=== PATIENT | female | born 1980 | race Two or more races ===

== ENCOUNTER 2016-12-27 10:02 | Emergency (ER) | payer OTHER ==
[2016-12-27 10:10] VITALS: BP 108/83; PULSE 82; TEMP 98; BMI 27.4
--- NOTE | 2016-12-27 10:39 | PDOC ---
History of Present Illness - General Chief Complaint: Pain, Acute Stated Complaint: BREASTS INFECTION Time Seen by Provider: 12/27/16 10:29 - History of Present Illness Initial Comments: 12/27/16 11:22 Pt. is a 36 y/o female PMH of hypothyroidism, , who presents to the ED today with 3 days of nipple pain. Pt. states that she is breast feeding her 8 month old child and that she noticed "cuts" on her nipples. She states that the nipple is painful to the touch and the area is more painful with feeding. She is expressing milk normally. Denies fevers, chills, N/V, bloody discharge from the nipple, or breast masses. Past History - Past Medical History Allergies/Adverse Reactions: Allergies Allergy/AdvReac Type Severity Reaction Status Date / Time No Known Allergies Allergy Verified 12/27/16 10:11 Home Medications: Ambulatory Orders Levothyroxine [Synthroid -] 137 mcg PO DAILY 04/22/16 Vit/Iron Fumarate/FA [ Tablet] 1 each PO DAILY 04/22/16 Vit D3/Folic Acid/B2/B6/B12 [Folgard Tablet] 2,000 mg PO DAILY 04/22/16 Ibuprofen [Motrin -] 600 mg PO QID #60 tablet 04/28/16 Anemia: Yes Asthma: No Cancer: No Cardiac Disorders: No Diabetes: No HTN: No Psychiatric Problems: Yes Seizures: No Thyroid Disease: No Other medical history: PATIENT DENIES MEDICAL HISTORY - Psycho/Social/Smoking Cessation Hx Anxiety: No Suicidal Ideation: No Smoking Status: Yes Smoking History: Never smoked Have you smoked in the past 12 months: No Number of Cigarettes Smoked Daily: 0 Hx Alcohol Use: No Drug/Substance Use Hx: No Substance Use Type: None Hx Substance Use Treatment: No *Physical Exam - Vital Signs Last Vital Signs Temp Pulse Resp BP Pulse Ox 98.0 F 82 18 108/83 95 12/27/16 10:07 12/27/16 10:07 12/27/16 10:07 12/27/16 10:07 12/27/16 10:07 - Physical Exam Comments: 12/27/16 11:25 GENERAL: Well developed, well nourished. Awake and alert. No acute distress. VVS NECK: Supple. Full ROM. Carotid pulses 2+ and symmetric. No thyromegaly. No lymphadenopathy. BREAST: Nipples TTP. No obvious masses in the breast B/L, no LAD into the axilla, no redness or induration. No fluctuant masses. SKIN: Dry skin surrounding nipples B/L. Fissures on the L breast at the 1-3 o'clock position and the R breast at the 6 o'clock position. Normal capillary refill. No rashes. No jaundice. Medical Decision Making - Medical Decision Making 12/27/16 11:29 Pt. is a 36 y/o female who presents to the ED with nipple pain. VVS. No obvious cellulitis or abscess. Fissures noted as described in physical exam. Will discharge home with Lanlolin cream and breast feeding instructions to avoid further irritation to the area. *DC/Admit/Observation/Transfer Diagnosis at time of Disposition: Fissure of female nipple - Discharge Dispostion Admit: No - Referrals Referrals: Herminio Chatman MD [Primary Care Provider] - - Patient Instructions Additional Instructions: You have a cut on your nipple known as a fissure. These are caused by dry skin. There is no sign of infection today. After you finish breast feeding, dry your breast thoroughly. Use Lanolin cream on your nipples after breast feeding. This cream is found over the counter at your local pharmacy. Rotate breast feeding positions to give the affected area of your nipple a rest. You may also find comfort from using a gel padded bra. These can be found at [facility]. If you cannot find a gel padded bra, put a cabbage leaf in your bra to help prevent rubbing. If you do not see improvement, follow up with your PCP.
== END 2016-12-27 11:45 | disposition home or self-care (01) ==
LOC: JERFT 10:02
DX: N64.0 Fissure and fistula of nipple (principal); F99 Mental disorder, not otherwise specified; D64.9 Anemia, unspecified
CPT/HCPCS: 99281-25

== ENCOUNTER 2018-11-05 08:00 | Inpatient (IN) | payer OTHER ==
[2018-11-05] MEDS: DEXTROSE 5%-LACTATED RINGERS 1,000 ML IV SCH (08:40)
[2018-11-05] MEDS ORDERED: AMPICILLIN SODIUM 2 GM VIAL ONE (08:49)
[2018-11-05 09:25] VITALS: BMI 30.9
[2018-11-05] MEDS ORDERED: PROMETHAZINE HCL 25 MG/1 ML VIAL ONE (09:48)
[2018-11-05] MEDS ORDERED: BUTORPHANOL TARTRATE 1 MG/ML VIAL ONE (09:48)
[2018-11-05] MEDS ORDERED: PROMETHAZINE HCL 25 MG/1 ML VIAL IVPUSH ONE (10:03)
[2018-11-05] MEDS ORDERED: BUTORPHANOL TARTRATE 1 MG/ML VIAL IVPB ONE (10:03)
[2018-11-05] MEDS ORDERED: AMPICILLIN - 2 GM in SODIUM CHLORIDE 100 ML IVPB ONE (10:06)
[2018-11-05 10:09] LABS: BASO % 0.3 % (0-2.0); EOS % 0.4 % (0-4.5); HEMATOCRIT 31.7 % (32.4-45.2); HEMOGLOBIN 10.9 GM/dL (10.7-15.3); LYMPH % 19.6 % (8-40); MCHC 34.4 g/dl (32.0-36.0); MEAN CELL VOLUME 84.2 fl (80-96); MEAN PLT VOLUME 8.5 fl (7.5-11.1); MONO % 3.9 % (3.8-10.2); NEUT % 75.8 % (42.8-82.8); PLATELET COUNT 222 K/MM3 (134-434); RBC 3.76 M/mm3 (3.60-5.2); RDW 15.1 % (11.6-15.6); WHITE BLOOD COUNT 7.4 K/mm3 (4.0-10.0)
--- NOTE | 2018-11-05 10:13 | HP ---
Past Medical History - Admission Chief Complaint: Pain in labor History of Present Illness: 38 yo @ 39.6 weeks gestation, admitted for labor pain. Upon admission she was 7cm dilated with intact membrane. History Source: Patient Limitations to Obtaining History: No Limitations - Past Medical History ...: 3 ...Para: 1 ...Term: 1 ...: 0 ...Spon : 0 ...Induced : 0 ...Multiple Gestation: 0 ...LMP: 03/19/18 ...EDC by Dates: 11/06/18 Heme/Onc: Yes: Anemia Psych: Yes: Schizophrenia (unclear hx) Endocrine: Yes: Hypothyroidism - Past Surgical History Past Surgical History: Yes: None Hx Myomectomy: No Hx Transabdominal Cerclage: No - Smoking History Smoking history: Never smoked Have you smoked in the past 12 months: No Aproximately how many cigarettes per day: 0 - Alcohol/Substance Use Hx Alcohol Use: No History of Substance Use: reports: None - Social History Usual Living Arrangement: Yes: With Spouse ADL: Independent History of Recent Travel: No Home Medications - Allergies Allergies/Adverse Reactions: Allergies Allergy/AdvReac Type Severity Reaction Status Date / Time No Known Allergies Allergy Verified 11/05/18 09:41 - Home Medications Home Medications: Ambulatory Orders Levothyroxine [Synthroid -] 137 mcg PO DAILY 04/22/16 Vit/Iron Fum/Folic AC [ Tablet] 1 each PO DAILY 04/22/16 Vit D3/Folic Acid/B2/B6/B12 [Folgard Tablet] 2,000 mg PO DAILY 04/22/16 Ibuprofen [Motrin -] 600 mg PO QID #60 tablet 04/28/16 Family Disease History - Family Disease History Family History: Unremarkable Review of Systems - Review of Systems Constitutional: reports: No Symptoms Eyes: reports: No Symptoms HENT: reports: No Symptoms Neck: reports: No Symptoms Cardiovascular: reports: No Symptoms Respiratory: reports: No Symptoms Gastrointestinal: reports: No Symptoms Genitourinary: reports: Pain Breasts: reports: No Symptoms Reported Musculoskeletal: reports: No Symptoms Integumentary: reports: No Symptoms Neurological: reports: No Symptoms Endocrine: reports: No Symptoms Hematology/Lymphatic: reports: No Symptoms Psychiatric: reports: No Symptoms Pain Intensity: 7 Physical Exam - Maternity Vital Signs: Vital Signs Temperature 97.6 F 11/05/18 09:00 Pulse Rate 72 11/05/18 09:00 Respiratory Rate 20 11/05/18 09:00 Blood Pressure 121/76 11/05/18 09:00 O2 Sat by Pulse Oximetry (%) Constitutional: Yes: Well Nourished Eyes: Yes: Conjunctiva Clear HENT: Yes: Atraumatic Neck: Yes: Supple Cardiovascular: Yes: Regular Rate and Rhythm Lungs: Clear to auscultation - Abdominal Exam/OB Number of Fetuses: Single Presentation: Vertex Intensity: Mod/Strong - Vaginal Exam/OB Vaginal Bleediing: No Dilatation (cm): 7 Effacement (%): 90 Station: -1 - Physical Exam Musculoskeletal: Yes: WNL Extremities: Yes: WNL ...Motor Strength: WNL Psychiatric: Yes: Alert, Oriented Assessment/Plan Active labor Analgesia as needed Anticipate
[2018-11-05 10:21] LABS: INR 0.83 (0.83-1.09); PROTHROMBIN TIME (PATIENT) 9.8 SEC (9.7-13.0)
[2018-11-05 10:23] LABS: ACTIVATED PTT 25.9 SECONDS (25.2-36.5)
[2018-11-05 10:30] LABS: ANION GAP 10 MMOL/L (8-16); BLOOD UREA NITROGEN 12 mg/dL (7-18); CALCIUM 8.7 mg/dL (8.5-10.1); CHLORIDE 106 mmol/L (98-107); CO2 22 mmol/L (21-32); CREATININE 0.7 mg/dL (0.55-1.3); GLUCOSE,RANDOM 94 mg/dL (74-106); POTASSIUM 3.8 mmol/L (3.5-5.1); SODIUM 138 mmol/L (136-145)
[2018-11-05] MEDS: OXYTOCIN 30 UNITS in 0.9% NS 30 UNIT/500 ML INFUS.BAG IVPB SCH (10:30)
[2018-11-05] MEDS: OXYTOCIN 20 UNITS in 0.9% NS 20 UNIT/1,000 ML INFUS.BAG IV SCH (11:30)
[2018-11-05] MEDS ORDERED: LIDOCAINE HCL 1% PRESERVATIVE FREE - 30ML VIAL ONE (11:34)
[2018-11-05] MEDS ORDERED: BENZOCAINE 28 GM HEMORRHOIDAL OINTMENT TP PRN (11:46)
[2018-11-05] MEDS ORDERED: BENZOCAINE 20% 57 GM BOTTLE TP PRN (11:46)
[2018-11-05] MEDS ORDERED: BISACODYL 10 MG SUPP.RECT RC PRN (11:46)
[2018-11-05] MEDS ORDERED: WITCH HAZEL 50% (TUCKS) 40 PAD/JAR PAD TP PRN (11:46)
[2018-11-05] MEDS ORDERED: METHYLERGONOVINE MALEATE 0.2 MG/1 ML AMP IM PRN (11:46)
--- NOTE | 2018-11-05 11:54 | PN ---
Delivery - Delivery Vaginal Delivery: Spontaneous Type of Anesthesia: Local Episiotomy/Laceration: 2nd degree EBL (cc): 250 Delivery, Single - Stages of Labor Date 1st Stage Initiatied: 11/05/18 Time 1st Stage Initiated: 08:00 Date 2nd Stage Initiated: 11/05/18 Date of Delivery: 11/05/18 - Feeding Plan Initial Plan: Elected not to breastfeed exclusively throughout hospitalization Remarks - Remarks Remarks: Normal spontaneous vaginal delivery of a live infant over second degree laceration. Nose / Oropharynx suctioned @ perineum. Nuchal cord x 1 clamped and cut. Baby handed to nurse Placenta expelled spontaneously intact. Laceration repaired with 2.0 Chromic.
[2018-11-05] MEDS ORDERED: OXYTOCIN 20 UNITS in 0.9% NS 20 UNIT/1,000 ML INFUS.BAG IV ONE (13:07)
[2018-11-05] MEDS ORDERED: TUBERCULIN PPD 5 TU/0.1ML SYRINGE (IN PATIENT USE ONLY) ID ONE (13:15)
[2018-11-05] MEDS: IBUPROFEN 600 MG TABLET (FP) PO PRN (17:10)
[2018-11-05] MEDS: ACETAMINOPHEN 325 MG TABLET (FP) PO PRN (17:11)
[2018-11-06 08:04] LABS: BASO % 0.4 % (0-2.0); EOS % 0.6 % (0-4.5); HEMATOCRIT 30.6 % (32.4-45.2); HEMOGLOBIN 10.3 GM/dL (10.7-15.3); LYMPH % 16.9 % (8-40); MCH 28.2 pg (25.7-33.7); MCHC 33.6 g/dl (32.0-36.0); MEAN CELL VOLUME 84.1 fl (80-96); MEAN PLT VOLUME 8.5 fl (7.5-11.1); MONO % 3.3 % (3.8-10.2); NEUT % 78.8 % (42.8-82.8); PLATELET COUNT 240 K/MM3 (134-434); RBC 3.64 M/mm3 (3.60-5.2); RDW 15.3 % (11.6-15.6); WHITE BLOOD COUNT 11.7 K/mm3 (4.0-10.0)
[2018-11-06] MEDS: IBUPROFEN 600 MG TABLET (FP) PO PRN (08:21)
[2018-11-06] MEDS: ACETAMINOPHEN 325 MG TABLET (FP) PO PRN (08:23)
[2018-11-06] MEDS: PRENATAL VITAMINS W/ FOLIC ACID TABLET (FP) PO SCH (09:23)
--- NOTE | 2018-11-06 10:13 | PN ---
Post Progress Note - Subjective Subjective: 38 yo Para 3, status post vaginal delivery, seen and evaluated. Doing well. She c/o perineal pain. She's taking her home medication for thyroid disease. Post Day: 1 Type of Delivery: Vital Signs: Vital Signs Temperature 98.1 F 11/06/18 07:30 Pulse Rate 90 11/06/18 07:30 Respiratory Rate 18 11/06/18 07:30 Blood Pressure 116/75 11/06/18 07:30 O2 Sat by Pulse Oximetry (%) 100 11/05/18 12:30 Breast Exam: Yes: Soft Uterus: Yes: Fundus Firm Abdomen/GI: Yes: Abdomen soft, Tolerating PO Lochia: Yes: Rubra Lochia, amount: Moderate Extremities: Yes: Calves non-tender Perineum: Yes: Laceration (Healing) Activity: Ambulating - Labs Labs: CBC WBC 11.7 K/mm3 (4.0-10.0) H 11/06/18 07:30 RBC 3.64 M/mm3 (3.60-5.2) 11/06/18 07:30 Hgb 10.3 GM/dL (10.7-15.3) L 11/06/18 07:30 Hct 30.6 % (32.4-45.2) L 11/06/18 07:30 MCV 84.1 fl (80-96) 11/06/18 07:30 MCH 28.2 pg (25.7-33.7) 11/06/18 07:30 MCHC 33.6 g/dl (32.0-36.0) 11/06/18 07:30 RDW 15.3 % (11.6-15.6) 11/06/18 07:30 Plt Count 240 K/MM3 (134-434) 11/06/18 07:30 MPV 8.5 fl (7.5-11.1) 11/06/18 07:30 Absolute Neuts (auto) 9.2 K/mm3 (1.5-8.0) H 11/06/18 07:30 Neutrophils % 78.8 % (42.8-82.8) 11/06/18 07:30 Lymphocytes % 16.9 % (8-40) 11/06/18 07:30 Monocytes % 3.3 % (3.8-10.2) L 11/06/18 07:30 Eosinophils % 0.6 % (0-4.5) 11/06/18 07:30 Basophils % 0.4 % (0-2.0) 11/06/18 07:30 Nucleated RBC % 0 % (0-0) 11/06/18 07:30 Problem List - Problems (1) Status post normal vaginal delivery Code(s): [id number] - Assessment/Plan Status post vaginal delivery Stable Continue routine post op care
[2018-11-06] MEDS: DEXTROSE 5%-LACTATED RINGERS 1,000 ML IV SCH (20:27)
[2018-11-06] MEDS: OXYTOCIN 30 UNITS in 0.9% NS 30 UNIT/500 ML INFUS.BAG IVPB SCH (20:28)
[2018-11-06] MEDS: OXYTOCIN 20 UNITS in 0.9% NS 20 UNIT/1,000 ML INFUS.BAG IV SCH (20:28)
[2018-11-06] MEDS ORDERED: SENNOSIDES/DOCUSATE COMBO (SENNA PLUS) TABLET (UD) PO PRN (22:00)
--- NOTE | 2018-11-07 06:35 | DS ---
Physical Exam-DE[employer] MA[employer]GER Vital Signs: Vital Signs Temperature 97.1 F L 11/06/18 22:00 Pulse Rate 88 11/06/18 22:00 Respiratory Rate 18 11/06/18 22:00 Blood Pressure 107/67 11/06/18 22:00 O2 Sat by Pulse Oximetry (%) 100 11/05/18 12:30 Constitutional: Yes: Well Nourished, No Distress ....Post : Yes: Uterus firm, Uterus non-tender Breast(s): Yes: WNL Extremities: Yes: WNL Labs: CBC, BMP 11/06/18 07:30 11/05/18 09:42 Delivery - Delivery Vaginal Delivery: Spontaneous Type of Anesthesia: Local Episiotomy/Laceration: Perineal Extension/lac, 2nd degree EBL (cc): 250 Delivery, Single - Stages of Labor Date 1st Stage Initiatied: 11/05/18 Time 1st Stage Initiated: 08:00 Date 2nd Stage Initiated: 11/05/18 Time 2nd Stage Initiated: 11:10 Date of Delivery: 11/05/18 Time of Delivery: 11:24 Time Placenta Delivered: 11:30 - Condition of Infant [place] Curtain Machine Tender/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 Present: No Infant Gender: Female Weight: 7 lb 13 oz Position: Left, OP Total Hours ROM (Hrs/Mins): 1hr-10 mins - 1 Minute Total Score: 9 5 Minutes Total Score: 9 - Feeding Plan Initial Plan: Elected not to breastfeed exclusively throughout hospitalization Discharge Summary Reason For Visit: LABOR ADMISSION Current Active Problems Status post normal vaginal delivery (Acute) Procedures: Principal: Normal vaginal delivery Condition: Good - Instructions Diet, Activity, Other Instructions: Regular diet No douching, no sexual intercourse x 6 weeks F/U with MD in 6 weeks Disposition: HOME - Home Medications Comprehensive Discharge Medication List: Ambulatory Orders Levothyroxine [Synthroid -] 137 mcg PO DAILY 04/22/16 Vit/Iron Fum/Folic AC [ Tablet] 1 each PO DAILY 04/22/16 Vit D3/Folic Acid/B2/B6/B12 [Folgard Tablet] 2,000 mg PO DAILY 04/22/16 Ibuprofen [Motrin -] 600 mg PO QID #60 tablet 04/28/16
[2018-11-07] MEDS: PRENATAL VITAMINS W/ FOLIC ACID TABLET (FP) PO SCH (09:29)
[2018-11-07 13:17] VITALS: BP 125/69; PULSE 86; TEMP 99.1
== END 2018-11-07 16:00 | disposition home or self-care (01) | DRG 560 ==
LOC: JLDR 08:00 → J3W 13:14
PROVIDERS: ADMIT Obstetrics & Gynecology; ATTEND Obstetrics & Gynecology
PROC: 0KQM0ZZ Repair Perineum Muscle, Open Approach (ICD-10-PCS; principal; 2018-11-05)
PROC: 10E0XZZ Delivery of Products of Conception, External Approach (ICD-10-PCS; 2018-11-05)
DX: O69.81X0 Labor and delivery complicated by cord around neck, without compression, not applicable or unspecified (principal); O70.1 Second degree perineal laceration during delivery; Z3A.39 39 weeks gestation of pregnancy; Z37.0 Single live birth
CPT/HCPCS: 36415; 59409; 80048; 85025; 85610; 85730; 86593; 86850; 86900; 86901; 87389

== ENCOUNTER 2019-04-25 00:19 | Emergency (ER) | payer OTHER | END 2019-04-25 02:22 | disposition home or self-care (01) | LOC: FER 00:19 ==

== ENCOUNTER 2019-05-09 12:03 | Inpatient (IN) | payer OTHER ==
[2019-05-09] MEDS ORDERED: AZTREONAM 2 GM in DEXTROSE 5%-WATER 100 ML IVPB ONE (13:05)
--- NOTE | 2019-05-09 13:20 | PDOC ---
History of Present Illness - General Chief Complaint: Pain Stated Complaint: ABD. PAIN/ INFECTION Time Seen by Provider: 05/09/19 12:39 - History of Present Illness Initial Comments: 05/09/19 13:16 39F with delivered vaginally in October of this year presents with umbilical rash, swelling and pain since last night. The swelling has been present since but recently has been getting bigger. The pain and the rash started last night which prompted her to come to the emergency department. Took one Tylenol last night m no vaginal discharge, no constipation, no diarrhea. No fever, n/v. Menstruation started 3 days ago. Past History - Past Medical History Allergies/Adverse Reactions: Allergies Allergy/AdvReac Type Severity Reaction Status Date / Time No Known Allergies Allergy Verified 05/09/19 12:17 Home Medications: Ambulatory Orders Levothyroxine [Synthroid -] 137 mcg PO DAILY 04/22/16 Anemia: Yes Asthma: No Cancer: No Cardiac Disorders: No COPD: No Diabetes: No HTN: No Psychiatric Problems: Yes Seizures: No Thyroid Disease: Yes (Hypothyroid) Other medical history: GESTATIONAL DM - Suicide/Smoking/Psychosocial Hx Smoking Status: Yes Smoking History: Never smoked Have you smoked in the past 12 months: No Number of Cigarettes Smoked Daily: 0 Information on smoking cessation initiated: No Hx Alcohol Use: No Drug/Substance Use Hx: No Substance Use Type: None Hx Substance Use Treatment: No Review of Systems - Review of Systems Able to Perform ROS?: Yes Is the patient limited Belgian proficient: No Constitutional: No: Symptoms Reported HEENTM: No: Symptoms Reported Respiratory: No: Symptoms reported Cardiac (ROS): No: Symptoms Reported ABD/GI: Yes: See HPI : No: Symptoms Reported Integumentary: Yes: See HPI Neurological: No: Symptoms reported All Other Systems: Reviewed and Negative *Physical Exam - Vital Signs Last Vital Signs Temp Pulse Resp BP Pulse Ox 98.2 F 96 H 17 115/65 98 05/09/19 12:18 05/09/19 12:18 05/09/19 12:18 05/09/19 12:18 05/09/19 12:18 - Physical Exam General Appearance: Yes: Nourished, Appropriately Dressed. No: Apparent Distress HEENT: positive: EOMI, BALAJI, Normal ENT Inspection Respiratory/Chest: positive: Lungs Clear, Normal Breath Sounds. negative: Chest Tender, Respiratory Distress Cardiovascular: positive: Regular Rhythm, Regular Rate, S1, S2 Gastrointestinal/Abdominal: positive: Normal Bowel Sounds, Tender (umbilical tenderness and swelling with 10cm diameter erythmatous rash), Soft. negative: Flat ED Treatment Course - LABORATORY CBC & Chemistry Diagram: 05/09/19 14:21 05/09/19 14:21 Medical Decision Making - Medical Decision Making 05/09/19 13:27 abscess vs infected incarcerated umbilical hernia Bedside ultrasound ambiguous for either. 05/09/19 15:17 Will start antibiotics and obtain ct abdomen and pelvis with IV contrast. 05/09/19 17:12 A 4. 4 x 4.2 x 4 cm thick-walled subcutaneous umbilical region fluid collection is seen suggestive of abscess formation. Overlying skin thickening is seen. Immediately deep to this apparent abscess note is made of a 1.7 x 1.7 cm slightly thickwalled fluid structure which may represent abscess extension into the preperitoneal space versus representing a concomitant small umbilical hernia. No bowel obstruction is visualized. Consult placed to surgeon economics lecturer Dr. Blankenship. 05/09/19 19:05 Patient admitted to med surg *DC/Admit/Observation/Transfer Diagnosis at time of Disposition: Abscess, umbilical, Abdominal wall cellulitis - Discharge Dispostion Decision to Admit order: Yes - Referrals Referrals: Rios Brooke MD [Primary Care Provider] - - Patient Instructions - Post Discharge Activity
--- NOTE | 2019-05-09 14:08 | PDOC ---
Documentation entered by Ivett Keith SCRIBE, acting as scribe for Yumiko Martínez MD. Yumiko Martínez MD: This documentation has been prepared by the Inna lopez Xhesika, SCRIBE, under my direction and personally reviewed by me in its entirety. I confirm that the documentation accurately reflects all work, treatment, procedures, and medical decision making performed by me. Attending Attestation - Resident Resident Name: Nato Birmingham - ED Attending Attestation I have performed the following: I have examined & evaluated the patient, The case was reviewed & discussed with the resident, I agree w/resident's findings & plan, Exceptions are as noted - HPI HPI: 05/09/19 13:10 This is a 36 year old female with a significant PMH of anemia, Schizophrenia, and hypothyroidism who presents to the emergency department for periumbilical pain x 1 day. The patient states she gave 11/05/18 and ever since then she developed a periumbilical rash, however, last night the area felt erythematous and edematous, which prompted her arrival to the ED. The patient denies chest pain, shortness of breath, headache and dizziness. Denies fever, chills, cough, nausea, vomiting, diarrhea and constipation. Denies dysuria, frequency, urgency and hematuria. Allergies: NKDA PCP: Dr. Rios Brooke. 05/09/19 14:02 05/09/19 18:59 - Physicial Exam PE: 05/09/19 14:05 awake alert lungs bilat heart rrr no mrg abd soft, periumbilical region with large erythematous bulge 1 x 2 inches., no palp hernia border. nonreducable however, fluctuance and overlying erythema, warmth, induration surrounding. - Medical Decision Making 05/09/19 14:07 39 yo F w post umbilical pain swelling and erythema, bulge. differential cellulitis, abscess, hernia with overlying cellulitis. plan ct a/p evalute for fluid collection extent of infection and possible hernia. 05/09/19 18:58 pt with abscess, overlying hernia small space between peritoneal cavity surrounding abd wall cellulitis. d/w surgeon dr cortez. pt will require admission for iv antiobtiocs. given 1 l LR vancomycin, an zosyn. will need admission.
[2019-05-09 14:32] LABS: BASO % 0.6 % (0-2.0); HEMATOCRIT 34.1 % (32.4-45.2); HEMOGLOBIN 11.5 GM/dL (10.7-15.3); LYMPH % 25.6 % (8-40); MCH 28.5 pg (25.7-33.7); MCHC 33.6 g/dl (32.0-36.0); MEAN CELL VOLUME 84.9 fl (80-96); MEAN PLT VOLUME 7.6 fl (7.5-11.1); MONO % 6.5 % (3.8-10.2); NEUT % 64.3 % (42.8-82.8); PLATELET COUNT 261 K/MM3 (134-434); RBC 4.02 M/mm3 (3.60-5.2); WHITE BLOOD COUNT 7.1 K/mm3 (4.0-10.0)
[2019-05-09 14:59] LABS: BILIRUBIN,TOTAL 0.5 mg/dL (0.2-1); CALCIUM 8.6 mg/dL (8.5-10.1); CREATININE 0.7 mg/dL (0.55-1.3); POTASSIUM 3.8 mmol/L (3.5-5.1)
[2019-05-09] MEDS ORDERED: VANCOMYCIN 1 GM in D5W (PRE-DOCKED) 1,000 MG/250 ML IVPB ONE (18:40)
[2019-05-09] MEDS ORDERED: PIPERACILLIN/TAZOB 3.375 GM 3.375 GM in DEXTROSE 5%-WATER - 50 ML IVPB ONE (18:41)
[2019-05-09] MEDS ORDERED: LACTATED RINGERS SOLUTION 1000 ML INFUS.BAG IV ONE (18:49)
[2019-05-09] MEDS ORDERED: LACTATED RINGERS SOLUTION 1,000 ML/1,000 ML INFUS.BAG IV SCH (19:00)
[2019-05-09] MEDS ORDERED: PIPERACILLIN/TAZOB 3.375 GM 3.375 GM/50 ML BAG IVPB ONE (19:05)
[2019-05-09] MEDS ORDERED: VANCOMYCIN 1 GRAM (PRE-DOCKED) 1,000 MG/250 ML BAG IVPB ONE (19:48)
[2019-05-09] MEDS ORDERED: ACETAMINOPHEN 325 MG TABLET (FP) PO PRN (20:38)
[2019-05-09] MEDS ORDERED: LACTATED RINGERS SOLUTION 1,000 ML IV SCH (20:45)
[2019-05-09 21:05] LABS: URINE COLOR YELLOW
[2019-05-09 21:06] LABS: URINE APPEARANCE CLEAR; URINE BILIRUBIN NEGATIVE (NEGATIVE); URINE GLUCOSE (UA) NEGATIVE (NEGATIVE); URINE KETONE NEGATIVE (NEGATIVE)
[2019-05-09 21:07] LABS: URINE NITRITE NEGATIVE (NEGATIVE); URINE PROTEIN NEGATIVE (NEGATIVE); URINE UROBILINOGEN 0.2 mg/dL (0.2-1.0)
[2019-05-09 21:08] LABS: EPI CELLS 1 /HPF (0-5/HPF); URINE LEUK ESTERASE NEGATIVE (NEGATIVE); URINE RBC 4 /hpf (0-4); URINE WBC 1 /hpf (0-5)
--- NOTE | 2019-05-09 22:38 | HP ---
CHIEF COMPLAINT: abdominal pain PCP:Dr. Rios Brooke HISTORY OF PRESENT ILLNESS: 39 year old female with past medical history of hypothyroidism, anemia, ? schizophrenuia and delivered vaginally in October of this year who presents with an umbilical rash, swelling and abdominal pain since last night. CT scan of abdomen demonstrated an abdominal wall cellulitis and umbilical abscess as results below. Surgery- Dr. Blankenship has been consulted and plan is for the OR tomorrow. She was given IV Vancomycin and Zosyn. Labs notable for a normal WBC. She is currently hemodynamically stable and afebrile. CT Scan of Abdomen A 4. 4 x 4.2 x 4 cm thick-walled subcutaneous umbilical region fluid collection is seen suggestive of abscess formation. Overlying skin thickening is seen. Immediately deep to this apparent abscess note is made of a 1.7 x 1.7 cm slightly thick walled fluid structure which may represent abscess extension into the preperitoneal space versus representing a concomitant small umbilical hernia. No bowel obstruction is visualized. Recent Travel: denies PAST MEDICAL HISTORY: hypothyroidism anemia ?schizophrenia PAST SURGICAL HISTORY: denies Social History: Smoking:no Alcohol:no Drugs: no Family History: noncontributory Allergies No Known Allergies Allergy (Verified 05/09/19 12:17) HOME MEDICATIONS: Home Medications Medication Instructions Recorded Levothyroxine [Synthroid -] 137 mcg PO DAILY 04/22/16 REVIEW OF SYSTEMS CONSTITUTIONAL: Absent: fever, chills, diaphoresis, generalized weakness, malaise, loss of appetite, weight change HEENT: Absent: rhinorrhea, nasal congestion, throat pain, throat swelling, difficulty swallowing, mouth swelling, ear pain, eye pain, visual changes CARDIOVASCULAR: Absent: chest pain, syncope, palpitations, irregular heart rate, lightheadedness , peripheral edema RESPIRATORY: Absent: cough, shortness of breath, dyspnea with exertion, orthopnea, wheezing, stridor, hemoptysis GASTROINTESTINAL: Absent: abdominal pain, abdominal distension, nausea, vomiting, diarrhea, constipation, melena, hematochezia GENITOURINARY: Absent: dysuria, frequency, urgency, hesitancy, hematuria, flank pain, genital pain MUSCULOSKELETAL: Absent: myalgia, arthralgia, joint swelling, back pain, neck pain SKIN: Absent: rash and swelling to stomach, itching, pallor HEMATOLOGIC/IMMUNOLOGIC: Absent: easy bleeding, easy bruising, lymphadenopathy, frequent infections ENDOCRINE: Absent: unexplained weight gain, unexplained weight loss, heat intolerance, cold intolerance NEUROLOGIC: Absent: headache, focal weakness or paresthesias, dizziness, unsteady gait, seizure, mental status changes, bladder or bowel incontinence PSYCHIATRIC: Absent: anxiety, depression, suicidal or homicidal ideation, hallucinations. PHYSICAL EXAMINATION Vital Signs - 24 hr 05/09/19 05/09/19 05/09/19 12:18 18:26 21:43 Temperature 98.2 F 98.5 F 99.1 F Pulse Rate 96 H 71 Pulse Rate [ 86 Left Radial] Respiratory 17 14 18 Rate Blood Pressure 115/65 108/66 Blood Pressure 112/61 [Right Arm] O2 Sat by Pulse 98 100 Oximetry (%) GENERAL: awake alert and fully oriented no acute distress HEAD: normal EYES: pupils equal round and reactive to light, extraocular movements intact EARS, NOSE, THROAT: ears normal, nares patent NECK: normal range of motion LUNGS: breath sounds equal and clear to auscultation bilaterally no wheezes and no crackles no accessory muscle use HEART: regular rate and rhythm normal S1 and S2 ABDOMEN: large, tender and distended with guarding, rash/redness noted MUSCULOSKELETAL: normal range of motion at all joints no bony deformities or tenderness no CVA tenderness UPPER EXTREMITIES: 2+ pulses warm well-perfused no cyanosis no peripheral edema LOWER EXTREMITIES: 2+ pulses warm well-perfused no calf tenderness no peripheral edema NEUROLOGICAL: no neuro focal deficits PSYCHIATRIC: cooperative good eye contact SKIN: warm dry normal turgor nail beds and lips pink Laboratory Results - last 24 hr 05/09/19 05/09/19 05/09/19 14:21 14:21 20:20 WBC 7.1 RBC 4.02 Hgb 11.5 Hct 34.1 MCV 84.9 MCH 28.5 MCHC 33.6 RDW 13.0 D Plt Count 261 MPV 7.6 D Absolute Neuts (auto) 4.6 Neutrophils % 64.3 Lymphocytes % 25.6 D Monocytes % 6.5 D Eosinophils % 3.0 D Basophils % 0.6 Nucleated RBC % 0 Sodium 140 Potassium 3.8 Chloride 108 H Carbon Dioxide 28 Anion Gap 5 L BUN 12.0 Creatinine 0.7 Est GFR (CKD-EPI)AfAm 126.49 Est GFR (CKD-EPI)NonAf 109.14 Random Glucose 81 Calcium 8.6 Total Bilirubin 0.5 AST 12 L ALT 18 Alkaline Phosphatase 62 Total Protein 7.0 Albumin 4.0 Urine Color Yellow Urine Appearance Clear Urine pH 7.0 Ur Specific [place] 1.063 H Urine Protein Negative Urine Glucose (UA) Negative Urine Ketones Negative Urine Blood 2+ H Urine Nitrite Negative Urine Bilirubin Negative Urine Urobilinogen 0.2 Ur Leukocyte Esterase Negative Urine WBC (Auto) 1 Urine RBC (Auto) 4 U Epithel Cells (Auto) 1 Urine HCG, Qual 05/09/19 20:20 WBC RBC Hgb Hct MCV MCH MCHC RDW Plt Count MPV Absolute Neuts (auto) Neutrophils % Lymphocytes % Monocytes % Eosinophils % Basophils % Nucleated RBC % Sodium Potassium Chloride Carbon Dioxide Anion Gap BUN Creatinine Est GFR (CKD-EPI)AfAm Est GFR (CKD-EPI)NonAf Random Glucose Calcium Total Bilirubin AST ALT Alkaline Phosphatase Total Protein Albumin Urine Color Urine Appearance Urine pH Ur Specific [place] Urine Protein Urine Glucose (UA) Urine Ketones Urine Blood Urine Nitrite Urine Bilirubin Urine Urobilinogen Ur Leukocyte Esterase Urine WBC (Auto) Urine RBC (Auto) U Epithel Cells (Auto) Urine HCG, Qual Negative ASSESSMENT/PLAN: 39 year old female with past medical history of hypothyroidism,anemia, ? schizophrenia and vaginal delivery October 2018 who presented with an umbilical rash, swelling and abdominal pain since last night. She was found to have abdominal wall cellulitis and umbilical abscess by CT scan of abdomen. She was evaluated by Dr. Blankenship of Surgery and plan is for the OR for presumed incarcerated umbilical hernia repair with possible mesh, possible evacuation of abscess if pus encountered. #1 Umbilical Abscess/Abdominal Wall Cellulitis Labs w/ normal WBC and UA. Blood cultures pending. She is currently hemodynamically stable and afebrile Surgery- Dr. Blankenship consulted and consuklt appreciated, going to OR tomorrow She was given one dosage of IV Vancomycin and Zosyn --Continue with IV Zosyn 2.25gm q8hr --Infectious Diseases- Dr. Velazco consulted --Continue with Tylenol 650mg po q6hr prn for pain --NPO --IVF LR at 75cc/hr #2 Hypothyroidism --Continue with synthroid DVT TEDS FEN NPO after midnight, IVF LR @75cc/hr Visit type - Emergency Visit Emergency Visit: Yes ED Registration Date: 05/09/19 Care time: The patient presented to the Emergency Department on the above date and was hospitalized for further evaluation of their emergent condition. - New Patient This patient is new to me today: Yes Date on this admission: 05/10/19 - Critical Care Critical Care patient: No
--- NOTE | 2019-05-09 23:03 | CONSULT ---
Consult Consult Specialty:: General Surgery Referred by:: Nela Birmingham Reason for Consultation:: umbilical abscess vs incarcerated hernia - History of Present Illness Chief Complaint: umbilical bulging, pink, painful, hard History of Present Illness: 39yo F with hypothyroidism, 6 mos from , presented with increased bulging/hardness at umbilicus since yesterday, associated with pain and pink skin. No N/V, no change in bowel habits; she is her , and had recent cold with some productive coughing, which is getting better. She noted bulging at the site with the , but it got harder and painful yesterday, warm and pink. Ibuprofen did not relieve the discomfort. In the ER, she was afebrile, with normal wbc, and CT showed fluid with some skin thickening overlying and possible umbilical hernia underlying, vs extension of possible abscess into preperitoneal space. CT also noted malrotation, with colon all on left side of abdomen. Review of CT from 5 yrs prior showed umbilical hernia with portion of colon underlying umbilical skin, but no juan bulge. Surgery was asked to assess. She has been started on antibiotics. Last po was juice about 5pm. She is seen and examined briefly in ER, then up on floor in her bed. The site is mainly tender to touch. She also had some generalized itching during the exam , which seemed to resolve spontaneously. 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 # [id number]) - Past Medical History ...: No ...Para: 2 (last Oct 2018) Heme/Onc: Yes: Anemia Psych: Yes: Schizophrenia (unclear hx - pt denies) Musculoskeletal: Yes: Other (umbilical hernia) Endocrine: Yes: Hypothyroidism - Past Surgical History Past Surgical History: Yes: None - Alcohol/Substance Use Hx Alcohol Use: No History of Substance Use: reports: None - Smoking History Smoking history: Never smoked Have you smoked in the past 12 months: No - Social History Usual Living Arrangement: With Spouse ADL: Independent History of Recent Travel: No Home Medications - Allergies Allergies/Adverse Reactions: Allergies Allergy/AdvReac Type Severity Reaction Status Date / Time No Known Allergies Allergy Verified 05/09/19 12:17 - Home Medications Home Medications: Ambulatory Orders Levothyroxine [Synthroid -] 88 mcg PO DAILY 04/22/16 Home Medications (free text): prn tylenol, ibuprofen; also takes vitamins, vitamin D and C Family Disease History - Family Disease History Family History: Unremarkable (noncontributory) Review of Systems - Review of Systems Constitutional: reports: Chills (just today), Fever (subjective, just today) Eyes: denies: Blurred Vision, Recent Change in Vision HENT: denies: Difficult Swallowing, Throat Pain Neck: denies: Swollen Glands, Tenderness Cardiovascular: denies: Chest Pain, Palpitations Respiratory: reports: Cough (intermittent, with some phlegm - comes and goes). denies: SOB Gastrointestinal: reports: Abdominal Pain (with hpi). denies: Constipation, Diarrhea, Nausea, Vomiting Genitourinary: denies: Burning, Dysuria Musculoskeletal: reports: Back Pain (since baby was born, on and off). denies: Joint Pain Integumentary: reports: Erythema (with hpi), Lump (with hpi, at umbilicus) Neurological: reports: Headache (last couple months). denies: Dizziness Psychiatric: denies: Anxiety, Depression Physical Exam Vital Signs: Vital Signs Temperature 99.1 F 05/09/19 21:43 Pulse Rate 71 05/09/19 21:43 Respiratory Rate 18 05/09/19 21:43 Blood Pressure 108/66 05/09/19 21:43 O2 Sat by Pulse Oximetry (%) 100 05/09/19 18:26 Constitutional: Yes: Well Nourished, No Distress, Calm Eyes: Yes: Conjunctiva Clear, EOM Intact HENT: Yes: Atraumatic, Normocephalic Neck: Yes: Supple, Trachea Midline Cardiovascular: Yes: Regular Rate and Rhythm Respiratory: Yes: Regular, CTA Bilaterally Gastrointestinal: Yes: Normal Bowel Sounds, Soft, Hernia (umbilical - not reducible - moderately firm bulge gets slightly softer with supine position and mild pressure - harder with valsalva; erythema extending few cm diameter around umbilicus; tender only at umbilicus, mild), Tenderness (at umbilicus only). No : Tenderness, Rebound ...Rectal Exam: Yes: Deferred Renal/: No: CVA Tenderness - Left, CVA Tenderness - Right Breast(s): Yes: Other (has been ) Musculoskeletal: No: Joint Stiffness, Joint Swelling Extremities: No: Cool, Cyanosis Edema: No Peripheral Pulses WNL: Yes Integumentary: Yes: Body Piercing (nasal, ears), Erythema (as above). No: Jaundice, Rash Neurological: Yes: Alert, Oriented Psychiatric: Yes: Alert, Oriented Labs: CBC, BMP 05/09/19 14:21 05/09/19 14:21 CMP Sodium 140 mmol/L (136-145) 05/09/19 14:21 Potassium 3.8 mmol/L (3.5-5.1) 05/09/19 14:21 Chloride 108 mmol/L (98-107) H 05/09/19 14:21 Carbon Dioxide 28 mmol/L (21-32) 05/09/19 14:21 Anion Gap 5 MMOL/L (8-16) L 05/09/19 14:21 BUN 12.0 mg/dL (7-18) 05/09/19 14:21 Creatinine 0.7 mg/dL (0.55-1.3) 05/09/19 14:21 Est GFR (CKD-EPI)AfAm 126.49 05/09/19 14:21 Est GFR (CKD-EPI)NonAf 109.14 05/09/19 14:21 Random Glucose 81 mg/dL (74-106) 05/09/19 14:21 Calcium 8.6 mg/dL (8.5-10.1) 05/09/19 14:21 Total Bilirubin 0.5 mg/dL (0.2-1) 05/09/19 14:21 AST 12 U/L (15-37) L 05/09/19 14:21 ALT 18 U/L (13-61) 05/09/19 14:21 Alkaline Phosphatase 62 U/L (45-117) 05/09/19 14:21 Total Protein 7.0 g/dl (6.4-8.2) 05/09/19 14:21 Albumin 4.0 g/dl (3.4-5.0) 05/09/19 14:21 Urine Test Results Urine Color Yellow 05/09/19 20:20 Urine Appearance Clear 05/09/19 20:20 Urine pH 7.0 (5.0-8.0) 05/09/19 20:20 Ur Specific [place] 1.063 (1.010-1.035) H 05/09/19 20:20 Urine Protein Negative (NEGATIVE) 05/09/19 20:20 Urine Glucose (UA) Negative (NEGATIVE) 05/09/19 20:20 Urine Ketones Negative (NEGATIVE) 05/09/19 20:20 Urine Blood 2+ (NEGATIVE) H 05/09/19 20:20 Urine Nitrite Negative (NEGATIVE) 05/09/19 20:20 Urine Bilirubin Negative (NEGATIVE) 05/09/19 20:20 Ur Leukocyte Esterase Negative (NEGATIVE) 05/09/19 20:20 Imaging - Results Cat Scan: Report Reviewed, Image Reviewed (images reviewed - intestinal malrotation noted, umbilical hernia noted from 5 yrs prior, fluid filled cavity overlying - ?abscess - difficult to tell if fluid is in incarcerated hernia sac vs abscess with loop of bowel in hernia below or extension deeper) Problem List - Problems (1) Incarcerated umbilical hernia Assessment/Plan: most likely incarcerated umbilical hernia with fluid in sac - ? if abscess/ purulence cellulitis present over affected area, extending onto abdominal wall NPO after midnight ok to continue po meds pain meds prn - nonnarcotics first line IV antibiotics - ID consulted to continue will plan to take to OR for presumed incarcerated umbilical hernia repair with possible mesh, possible evacuation of abscess if pus encountered Discussed with patient risks, benefits and alternatives of this procedure, including but not limited to bleeding, infection, injury to intraabdominal structures (intestines), recurrent/incisional hernia; alternatives include antibiotics with delayed or no surgery - risks of this include progression of infection, sepsis, hernia strangulation. Patient agreeable to proceed with operation - will take to OR tomorrow for above. Informed consent signed for same. Pt to pump and dump breast milk until 24-48 hrs after last dose of any contraindicated medication Code(s): K42.0 - UMBILICAL HERNIA WITH OBSTRUCTION, WITHOUT GANGRENE (2) Cellulitis, umbilical Code(s): L03.316 - CELLULITIS OF UMBILICUS (3) Abdominal wall cellulitis Code(s): L03.311 - CELLULITIS OF ABDOMINAL WALL (4) Umbilical pain Code(s): R10.33 - PERIUMBILICAL PAIN (5) Malrotation of intestine Assessment/Plan: incidentally noted on CT Code(s): Q43.3 - CONGENITAL MALFORMATIONS OF INTESTINAL FIXATION (6) Hypothyroid Code(s): E03.9 - HYPOTHYROIDISM, UNSPECIFIED Qualifiers: Hypothyroidism type: unspecified Qualified Code(s): E03.9 - Hypothyroidism , unspecified
[2019-05-10] MEDS ORDERED: DEXTROSE 5%-WATER - 50 ML IVPB ONE ×3 (01:46→16:55)
[2019-05-10] MEDS ORDERED: PIPERACILLIN/TAZOBACTAM 2.25 GM VIAL IVPB ONE ×2 (01:46→08:51)
[2019-05-10] MEDS ORDERED: PIPERACILLIN/TAZOB 2.25 GM 2.25 GM in DEXTROSE 5%-WATER - 50 ML IVPB SCH (02:00)
[2019-05-10] MEDS: PIPERACILLIN/TAZOB 2.25 GM 2.25 GM in DEXTROSE 5%-WATER - 50 ML IVPB SCH ×2 (02:22→12:03)
[2019-05-10 03:18] VITALS: BMI 24.9
[2019-05-10] MEDS ORDERED: LEVOTHYROXINE NA 88 MCG TABLET (FP) PO SCH (07:00)
[2019-05-10 07:16] LABS: BASO % 0.6 % (0-2.0); EOS % 3.4 % (0-4.5); HEMATOCRIT 33.5 % (32.4-45.2); HEMOGLOBIN 11.3 GM/dL (10.7-15.3); LYMPH % 26.5 % (8-40); MCH 28.6 pg (25.7-33.7); MCHC 33.7 g/dl (32.0-36.0); MEAN CELL VOLUME 84.7 fl (80-96); MEAN PLT VOLUME 8.1 fl (7.5-11.1); NEUT % 63.5 % (42.8-82.8); PLATELET COUNT 259 K/MM3 (134-434); RBC 3.96 M/mm3 (3.60-5.2); WHITE BLOOD COUNT 6.1 K/mm3 (4.0-10.0)
[2019-05-10 07:33] LABS: BLOOD UREA NITROGEN 11.6 mg/dL (7-18); CALCIUM 8.8 mg/dL (8.5-10.1); CREATININE 0.7 mg/dL (0.55-1.3); PHOSPHOROUS 3.4 mg/dL (2.5-4.9); POTASSIUM 3.9 mmol/L (3.5-5.1)
[2019-05-10 09:12] LABS: PROTHROMBIN TIME (PATIENT) 11.8 SEC (9.7-13.0)
[2019-05-10] MEDS ORDERED: LIDOCAINE HCL/PF 2% SDV 5ML VIAL ONE (09:41)
[2019-05-10] MEDS ORDERED: PROPOFOL 20 ML ONE ×2 (09:41)
[2019-05-10] MEDS ORDERED: ROCURONIUM BROMIDE 50 MG/5 ML SYRINGE ONE (09:42)
[2019-05-10] MEDS ORDERED: MIDAZOLAM HCL 2 MG/2 ML SINGLE DOSE VIAL ONE (09:42)
--- NOTE | 2019-05-10 09:42 | CON.ID ---
Consult Consult Specialty:: infectious diseases Reason for Consultation:: abd wall abscess - History of Present Illness History of Present Illness: 39 year old female with past medical history of hypothyroidism, anemia, ? schizophrenuia and delivered vaginally in October of this year admitted to the hospital because of an umbilical redness swelling and abd pain . CT scan of abdomen demonstrated an abdominal wall cellulitis and umbilical abscess patient received abx and surgery saw the patient and is being taken for surgery today - Past Medical History ...LMP: 05/06/19 ...: No Psych: Yes: Schizophrenia (unclear hx - pt denies) Musculoskeletal: Yes: Other (umbilical hernia) Endocrine: Yes: Hypothyroidism - Past Surgical History Past Surgical History: Yes: None - Alcohol/Substance Use Hx Alcohol Use: No History of Substance Use: reports: None - Smoking History Smoking history: Never smoked Have you smoked in the past 12 months: No Aproximately how many cigarettes per day: 0 - Social History Usual Living Arrangement: With Spouse ADL: Independent History of Recent Travel: No Home Medications - Allergies Allergies/Adverse Reactions: Allergies Allergy/AdvReac Type Severity Reaction Status Date / Time No Known Allergies Allergy Verified 05/09/19 12:17 - Home Medications Home Medications: Ambulatory Orders Levothyroxine [Synthroid -] 88 mcg PO DAILY 04/22/16 Physical Exam Vital Signs: Vital Signs Temperature 98.5 F 05/10/19 06:12 Pulse Rate 73 05/10/19 06:12 Respiratory Rate 18 05/10/19 06:12 Blood Pressure 110/64 05/10/19 06:12 O2 Sat by Pulse Oximetry (%) 98 05/09/19 21:08 Labs: CBC, BMP 05/10/19 06:20 05/10/19 06:20
[2019-05-10] MEDS ORDERED: PIPERACILLIN/TAZOBACTAM 3.375 GM VIAL IVPB ONE ×2 (09:55→16:54)
[2019-05-10] MEDS ORDERED: DEXAMETHASONE SOD PHOSPHATE 4 MG/1 ML VIAL ONE (10:21)
[2019-05-10] MEDS ORDERED: ONDANSETRON 4 MG/2 ML VIAL ONE (10:21)
[2019-05-10] MEDS ORDERED: PIPERACILLIN/TAZOB 3.375 GM 3.375 GM in DEXTROSE 5%-WATER - 50 ML IVPB SCH ×2 (10:30→18:00)
[2019-05-10] MEDS ORDERED: GLYCOPYRROLATE 0.2 MG/1 ML VIAL ONE (10:42)
[2019-05-10] MEDS ORDERED: NEOSTIGMINE METHYLSULFATE 0.5 MG/1 ML - 10 ML MDV ONE (10:43)
[2019-05-10] MEDS ORDERED: BUPIVACAINE HCL/PF 0.5% (5 MG/ML) 30 ML VIAL IJ ONE ×2 (10:49)
--- NOTE | 2019-05-10 11:23 | PN ---
Progress Note (short form) - Note Progress Note: pt in OR Will follow Vital Signs Temp 98.3 F 05/10/19 09:54 Pulse 81 05/10/19 09:54 Resp 18 05/10/19 09:54 BP 117/67 05/10/19 09:54 Pulse Ox 98 05/09/19 21:08 Intake & Output 05/09/19 05/09/19 05/10/19 11:59 23:59 11:59 Intake Total 0 1050 Output Total 5 Balance 0 1045 Weight 145 lb Intake: IV 1000 Lactated Ringers Solution 500 1,000 ml @ 75 mls/hr IV ASDIR NIKA Rx#:[id number] IVPB 50 Oral 0 Output: Estimated Blood Loss 5 Other: Voiding Method Toilet # Unmeasured Voids Void 2 2 Bowel Movement No No Height 5 ft 4 in Body Mass Index (BMI) 24.9 Weight Measurement Method Standing Scale Weight Measurement Method Est/Stated by Patient Active Medications Acetaminophen (Tylenol -) 650 mg PO Q6H PRN PRN Reason: MODERATE PAIN Lactated Ringer's (Lactated Ringers Solution) 1,000 mls @ 75 mls/hr IV ASDIR NIKA Last Admin: 05/09/19 23:02 Dose: 75 mls/hr Piperacillin Sod/Tazobactam (Sod 3.375 gm/ Dextrose) 50 mls @ 100 mls/hr IVPB Q8H-IV NIKA; Protocol Levothyroxine Sodium (Synthroid -) 88 mcg PO DAILY@0700 [facility] Last Admin: 05/10/19 06:10 Dose: 88 mcg 05/10/19 06:20 05/10/19 06:20 ct scan - Reviewed
[2019-05-10] MEDS ORDERED: ONDANSETRON 4 MG/2 ML VIAL IVPUSH PRN ×2 (11:26→11:55)
[2019-05-10] MEDS ORDERED: IBUPROFEN 800 MG/8 ML IJ IVPB PRN (11:26)
--- NOTE | 2019-05-10 11:26 | OP ---
Operative Note - Note: Operative Date: 05/10/19 Pre-Operative Diagnosis: incarcerated umbilical hernia Operation: incarcerated umbilical hernia repair Findings: thick-walled hernia sac with serous fluid content, knuckle of fat at base of hernia reduced itself during dissection; sac excised and sent; 1.5cm diameter defect repaired primarily Post-Operative Diagnosis: Same as Pre-op Surgeon: Ger Blankenship Investment Manager: Harrison Cates Anesthesiologist/PULP SCREEN OPERATOR: Rosemarie Skinner Anesthesia: General, Local (10ml 0.5% marcaine) Specimens Removed: umbilical hernia sac Estimated Blood Loss (mls): 5 Fluid Volume Replaced (mls): 500 (crystalloid) Operative Report Dictated: Yes
[2019-05-10] MEDS ORDERED: ACETAMINOPHEN 1000 MG/100 ML VIAL (NON FORMULARY) IVPB ONE (11:27)
[2019-05-10] MEDS ORDERED: LACTATED RINGERS SOLUTION 1,000 ML IV SCH (11:55)
[2019-05-10] MEDS ORDERED: IBUPROFEN 800 MG/8 ML IJ IVPB ONE (12:01)
[2019-05-10] MEDS: PIPERACILLIN/TAZOB 2.25 GM 3.375 GM in DEXTROSE 5%-WATER - 50 ML IVPB SCH (12:03)
[2019-05-10] MEDS: ACETAMINOPHEN 325 MG TABLET (FP) PO SCH ×2 (14:28→20:29)
[2019-05-10] MEDS ORDERED: ACETAMINOPHEN 325 MG TABLET (FP) PO SCH (15:00)
--- NOTE | 2019-05-10 15:21 | PN ---
Progress Note, Physician History of Present Illness: comfortable pain ok - Current Medication List Current Medications: Active Medications Acetaminophen (Tylenol -) 650 mg PO Q6H NIKA Last Admin: 05/10/19 14:28 Dose: 650 mg Lactated Ringer's (Lactated Ringers Solution) 1,000 mls @ 75 mls/hr IV ASDIR NIKA Last Admin: 05/10/19 14:27 Dose: 75 mls/hr Piperacillin Sod/Tazobactam (Sod 3.375 gm/ Dextrose) 50 mls @ 100 mls/hr IVPB Q8H-IV NIKA; Protocol Ibuprofen (Motrin -) 600 mg PO Q6H NIKA Levothyroxine Sodium (Synthroid -) 88 mcg PO DAILY@0700 NIKA Ondansetron HCl (Zofran Injection) 4 mg IVPUSH Q6H PRN PRN Reason: NAUSEA AND/OR VOMITING - Objective Vital Signs: Vital Signs Temperature 97.8 F 05/10/19 14:43 Pulse Rate 54 L 05/10/19 14:43 Respiratory Rate 20 05/10/19 14:43 Blood Pressure 90/53 L 05/10/19 14:43 O2 Sat by Pulse Oximetry (%) 100 05/10/19 13:00 Constitutional: Yes: No Distress, Calm Eyes: Yes: Conjunctiva Clear Neck: Yes: Supple Cardiovascular: Yes: Regular Rate and Rhythm Respiratory: Yes: CTA Bilaterally Gastrointestinal: Yes: Soft Edema: No Neurological: Yes: Alert Labs: CBC, BMP 05/10/19 06:20 05/10/19 06:20 INR, PTT INR 1.00 (0.83-1.09) 05/10/19 06:20 Problem List - Problems (1) Incarcerated umbilical hernia Code(s): K42.0 - UMBILICAL HERNIA WITH OBSTRUCTION, WITHOUT GANGRENE (2) Malrotation of intestine Code(s): Q43.3 - CONGENITAL MALFORMATIONS OF INTESTINAL FIXATION Assessment/Plan stable discussed with Dr. Jackson today also Case discussed continue present care will follow D/w RN also.
[2019-05-10] MEDS: IBUPROFEN 600 MG TABLET (FP) PO SCH ×2 (17:55→23:02)
[2019-05-10] MEDS: PIPERACILLIN/TAZOB 3.375 GM 3.375 GM in DEXTROSE 5%-WATER - 50 ML IVPB SCH (17:56)
[2019-05-10] MEDS ORDERED: IBUPROFEN 600 MG TABLET (FP) PO SCH (18:00)
[2019-05-11] MEDS ORDERED: DEXTROSE 5%-WATER - 50 ML IVPB ONE ×2 (00:39→08:35)
[2019-05-11] MEDS ORDERED: PIPERACILLIN/TAZOBACTAM 3.375 GM VIAL IVPB ONE ×2 (00:39→08:35)
[2019-05-11] MEDS: ACETAMINOPHEN 325 MG TABLET (FP) PO SCH ×2 (02:48→08:43)
[2019-05-11] MEDS: PIPERACILLIN/TAZOB 3.375 GM 3.375 GM in DEXTROSE 5%-WATER - 50 ML IVPB SCH ×2 (02:48→09:25)
[2019-05-11 05:11] VITALS: TEMP 98.9
[2019-05-11] MEDS: IBUPROFEN 600 MG TABLET (FP) PO SCH ×2 (06:14→12:50)
[2019-05-11] MEDS ORDERED: LEVOTHYROXINE NA 88 MCG TABLET (FP) PO SCH (07:00)
[2019-05-11 08:33] LABS: BASO % 0.2 % (0-2.0); EOS % 0.6 % (0-4.5); HEMATOCRIT 29.7 % (32.4-45.2); HEMOGLOBIN 10.2 GM/dL (10.7-15.3); LYMPH % 20.3 % (8-40); MCH 28.8 pg (25.7-33.7); MCHC 34.4 g/dl (32.0-36.0); MEAN CELL VOLUME 83.6 fl (80-96); MEAN PLT VOLUME 8.5 fl (7.5-11.1); MONO % 5.7 % (3.8-10.2); NEUT % 73.2 % (42.8-82.8); PLATELET COUNT 265 K/MM3 (134-434); RBC 3.55 M/mm3 (3.60-5.2); WHITE BLOOD COUNT 8.4 K/mm3 (4.0-10.0)
[2019-05-11 08:59] LABS: ALBUMIN 3.4 g/dl (3.4-5.0); BILIRUBIN,TOTAL 0.4 mg/dL (0.2-1); BLOOD UREA NITROGEN 12.3 mg/dL (7-18); CALCIUM 8.9 mg/dL (8.5-10.1); CREATININE 0.8 mg/dL (0.55-1.3); POTASSIUM 3.9 mmol/L (3.5-5.1); TOT PROT 6.1 g/dl (6.4-8.2)
--- NOTE | 2019-05-11 11:23 | DS ---
Physical Examination Vital Signs: Vital Signs Temperature 98.9 F 05/11/19 04:00 Pulse Rate 58 L 05/11/19 04:00 Respiratory Rate 20 05/11/19 04:00 Blood Pressure 92/56 L 05/11/19 04:00 O2 Sat by Pulse Oximetry (%) 100 05/10/19 21:00 Findings/Remarks: feels well no complains pain ok afebrile Constitutional: Yes: No Distress, Calm Eyes: Yes: Conjunctiva Clear Neck: Yes: Supple Cardiovascular: Yes: Regular Rate and Rhythm Respiratory: Yes: CTA Bilaterally Gastrointestinal: Yes: Soft Edema: No Labs: CBC, BMP 05/11/19 05:40 05/11/19 05:40 Discharge Summary Reason For Visit: ABSCESS OF UMBILICUS,CELLULITIS OF ABDOMINAL WALL Current Active Problems Abdominal wall cellulitis (Acute) Cellulitis, umbilical (Acute) Incarcerated umbilical hernia (Acute) Malrotation of intestine (Acute) Umbilical pain (Acute) Hospital Course: s/p primary incarcerated umbilical hernia repair doing well d/c home off abx can breast feed from tomorrow Also Incidental findings of Malrotation of Intestine Discussed with Dr. Jackson f/u with Dr. Jackson in office as directed f/u office 2 weeks D/w RN also Pt in agreement Condition: Good - Instructions Diet, Activity, Other Instructions: Postoperative instructions: You had repair of an incarcerated (stuck) umbilical hernia on 05/10/[address] Ger Blankenship of [facility]. Activity: Resume your usual activities gradually, but NO heavy exertion or LIFTING more than 10-15 pounds for 4-6 weeks. (Do not lift children up from the floor - it is better to sit down and have them placed on your lap or into your arms.) After 4-6 weeks, you may slowly/gradually go back to normal activities. Remove your dressing 3 days after surgery (Monday) - peel the sticky part GENTLY from one side to the other, not away from your body, to remove the clear film and gauze. You may then shower daily, just pat the incision area dry. The sticky tapes underneath will fall off by themselves - just leave them alone until they do. No bath or swimming until the skin incision has fully healed. Eat lightly at first, but advance to your usual diet as tolerated. Pain: For pain, you may use and alternate Tylenol (acetaminophen) 1-2 pills and/ or ibuprofen 200 mg (1-3 pills) every 6 hours each as needed; this means that you can take one OR the other at 3-hour intervals. Do not take more than 4000 mg of acetaminophen in a day. Take medications as prescribed or indicated on the labeling. Wait until SUNDAY 05/13 before giving your breast milk to your baby again. You should PUMP and DUMP breast milk until it is safe to breastfeed again. Check with your MOLD MECHANIC doctor or steam shovelman if you are not sure when it is safe to resume . Follow-up: Call Dr. Blankenship's office at [phone] to make your postop appointment (Monday in approximately 2 weeks after surgery as advised). Clinic is held in the [facility] on the first floor of [facility]. Call the office if you have: * increasing pain not responsive to pain medication * fever of 101F or higher * vomiting * unusual or increasing bleeding or drainage from wounds * increasing redness or swelling at wound sites Also, see your primary medical doctor (Dr. Brooke) within 1-[address] scan also showed a condition called INTESTINAL MALROTATION. It means that you were born with all of your small intestines on the right side of the abdomen, and all of the large intestine on the left. This may or may not cause any problems for you in the future, but if you experience significant abdominal pain, vomiting that does not stop quickly, or other concerns related to your abdomen, you should see your doctor(s) and LET THEM KNOW about this condition. It also means that your appendix is NOT located in the lower right part of your abdomen, where it is usually expected to be. It is important that you and your doctors are aware of this, in case of illness that could be appendicitis in the future. Referrals: Ger Blankenship MD [Staff Physician] - 2 Weeks (CALL for appointment/time; clinic is held in [facility], 1st floor of [facility]) Disposition: HOME - Home Medications Comprehensive Discharge Medication List: Ambulatory Orders Levothyroxine [Synthroid -] 88 mcg PO DAILY 04/22/16 Acetaminophen [Tylenol .Regular Strength -] 650 mg PO Q6H tablet 05/11/19
--- NOTE | 2019-05-11 12:49 | PN ---
Progress Note, Physician History of Present Illness: Pt s/p primary incarcerated umbilical hernia repair yesterday with findings of thickened sac, serous fluid. She has ambulated, voided, is tolerating diet, and pain is controlled with alternating tylenol and ibuprofen. Last dose antibiotic this morning. She has been pumping and dumping breast milk. - Current Medication List Current Medications: Active Medications Acetaminophen (Tylenol -) 650 mg PO Q6H [facility] Last Admin: 05/11/19 08:43 Dose: 650 mg Piperacillin Sod/Tazobactam (Sod 3.375 gm/ Dextrose) 50 mls @ 100 mls/hr IVPB Q8H-IV NIKA; Protocol Last Admin: 05/11/19 09:25 Dose: 100 mls/hr Ibuprofen (Motrin -) 600 mg PO Q6H [facility] Last Admin: 05/11/19 06:14 Dose: 600 mg Levothyroxine Sodium (Synthroid -) 88 mcg PO DAILY@0700 [facility] Last Admin: 05/11/19 06:15 Dose: 88 mcg Ondansetron HCl (Zofran Injection) 4 mg IVPUSH Q6H PRN PRN Reason: NAUSEA AND/OR VOMITING - Objective Vital Signs: Vital Signs Temperature 98.9 F 05/11/19 04:00 Pulse Rate 58 L 05/11/19 04:00 Respiratory Rate 20 05/11/19 04:00 Blood Pressure 92/56 L 05/11/19 04:00 O2 Sat by Pulse Oximetry (%) 100 05/10/19 21:00 Constitutional: Yes: Well Nourished, No Distress, Calm Eyes: Yes: Conjunctiva Clear, EOM Intact HENT: Yes: Atraumatic, Normocephalic Gastrointestinal: Yes: Soft, Tenderness (incisional, appropriate). No: Distention Extremities: No: Cool, Cyanosis Integumentary: Yes: Incision (dressed). No: Erythema (none visible), Rash Wound/Incision: Yes: Steri Strips (under dressing), Dressing Dry and Intact. No : Dressing Removed Neurological: Yes: Alert, Oriented Labs: CBC, BMP 05/11/19 05:40 05/11/19 05:40 Problem List - Problems (1) Incarcerated umbilical hernia Assessment/Plan: POD1 s/p incarcerated umbilical hernia repair NO abscess or purulence cellulitis resolved around umbilical area pain managed well with meds prn - nonnarcotics first line stop antibiotics ambulating, voiding, tolerating diet ok for d/c home with lifting restrictions f/u 2 weeks instructions in d/c plan d/w Dr. Brooke Pt to pump and dump breast milk until Monday, given last dose of Zosyn today. Code(s): K42.0 - UMBILICAL HERNIA WITH OBSTRUCTION, WITHOUT GANGRENE (2) Cellulitis, umbilical Assessment/Plan: resolved Code(s): L03.316 - CELLULITIS OF UMBILICUS (3) Abdominal wall cellulitis Assessment/Plan: resolved Code(s): L03.311 - CELLULITIS OF ABDOMINAL WALL (4) Umbilical pain Code(s): R10.33 - PERIUMBILICAL PAIN (5) Malrotation of intestine Assessment/Plan: incidentally noted on CT - noted in d/c instructions Dr. Brooke will discuss with patient/ Code(s): Q43.3 - CONGENITAL MALFORMATIONS OF INTESTINAL FIXATION (6) Hypothyroid Code(s): E03.9 - HYPOTHYROIDISM, UNSPECIFIED Qualifiers: Hypothyroidism type: unspecified Qualified Code(s): E03.9 - Hypothyroidism , unspecified
[2019-05-11 15:35] VITALS: BP 102/52; PULSE 64
--- NOTE | 2019-05-16 16:45 | PATH ---
Surgical Pathology Report Patient Name: HUGO SOLIMAN Med. Rec. #: [id number] /Age/Gender: 1980 (Age: 39) / F Account: [id number] Location: [address] [place] [address]/[facility] Taken: 05/10/2019 Received: 05/10/2019 Reported: 05/16/2019 Physicians: Ger Blankenship M.D. Specimen(s) Received UMBILICAL HERNIA SAC Clinical History incarcerated umbilical hernia Final Diagnosis UMBILICAL HERNIA SAC, REPAIR: FIBROADIPOSE TISSUE SHOWING EXTENSIVE FIBRINO-INFLAMMATORY EXUDATE AND GRANULATION TISSUE FORMATION, COMPATIBLE WITH INCARCERATED HERNIA CONTENTS. Electronically Signed Jasmin Ma M.D. Gross Description Received in formalin, labeled "umbilical hernia sac" is a 5.5 x 2.5 x 0.5 cm portion of leung and brown fibrous tissue with scant attached adipose tissue. Nuclear Logging Engineer tissue is submitted in one cassette. AE/05/15/2019 ebram/05/15/2019
--- NOTE | 2019-06-04 15:21 | OP ---
DATE OF OPERATION: 05/10/2019 PREOPERATIVE DIAGNOSIS: Incarcerated umbilical hernia. POSTOPERATIVE DIAGNOSIS: Incarcerated umbilical hernia. PROCEDURE: Incarcerated umbilical hernia repair. SURGEON: Ger Blankenship MD WARES SORTER: Harrison Cates MD ANESTHESIA: General endotracheal and local, 10 mL of 0.5% Marcaine. ESTIMATED BLOOD LOSS: 5 mL. FLUIDS: 500 mL crystalloid. SPECIMEN: Umbilical hernia sac to Pathology. FINDINGS: Thick walled hernia sac with serous fluid content. Small knuckle of fat at the base of the hernia reduced itself during dissection. Sac was excised and sent to Pathology, 1.5-cm diameter defect was repaired primarily. DISPOSITION: Stable and extubated to PACU. INDICATIONS FOR PROCEDURE: The patient is a 39-year-old female with a history of hypothyroidism, who is 6 months from a vaginal delivery, with a known bulge at her umbilicus, that presented with increased bulging and hardness since the day prior, associated with pain as well as pinker skin. She had no nausea, no vomiting, no change in bowel habits, and is . She had had a recent cold with a lot of coughing, which has been improving. She had had bulging at the site with her , but yesterday it had gotten very much more painful and hard, warm, and pink. In the emergency room, she was afebrile with a normal white count, but a CT scan showed fluid in the hernia with some skin thickening overlying, and a possible hernia underlying, suspicious for either abscess or incarcerated hernia. CT also noted incidentally malrotation. Risks, benefits, and alternatives of presumed incarcerated umbilical hernia repair with possible mesh, as well as possible evacuation of abscess, were discussed with the patient including, but not limited to, bleeding, infection, injury to intra-abdominal structures including the intestines, recurrent or incisional hernia, and alternatives inclusive of antibiotics with delayed or no surgery and subsequent risk of progression of infection, sepsis, or hernia strangulation. The patient agreed to proceed with an operation, signed informed consent for the same, is now brought to the OR for this procedure. OPERATIVE TECHNIQUE: The patient was brought to the operating room and laid supine on the operating table. Sequential compression devices were applied to bilateral lower extremities, and appropriate antibiotics were given in the preoperative period. After induction and intubation by anesthesia, the patient's abdomen was prepped and draped in sterile fashion. Curvilinear supraumbilical incision was made in the skin with a scalpel and carried into subcutaneous tissues with electrocautery, until the hernia sac was identified, and the umbilical skin off of it with electrocautery carefully peeling the umbilical skin back as an inferior flap. The hernia sac was dissected out circumferentially down to the level of the fascia with electrocautery. The sac appeared fairly thick walled and edematous. It felt like primarily fluid content in the hernia. Once we had completely dissected around at the fascial level, the hernia sac was held up between 2 clamps at the top, entered with Metzenbaum scissors. It was noted to be very thick-walled and some serous fluid content was evacuated. There was no pus encountered and no evidence of abscess. Manual probing of the inside of the hernia sac revealed a knuckle of what was presumed to be omental fat at the base of the hernia, which then reduced itself almost immediately into the abdominal cavity, and although could be partially visualized as a small yellow-brown knuckle of fat, could not be retrieved with a [place] clamp back up through the opening. There was no bowel content actually noted in the sac; a couple of short segments of small bowel were briefly retrieved with a Theodore clamp and brought back up through the opening, where there was no evidence of kink or obstruction or strictured areas. These were then returned to the abdomen. The hernia sac was then excised at the level of the fascia circumferentially and sent for pathologic specimen. The hernia defect measured 1.5 cm in diameter. The fascia was cleared on its surface and with a fingertip just under the internal edge, to ensure that there were no attached adhesions that would preclude being able to close this primarily. Electrocautery was used throughout the procedure for hemostasis as well. Chey clamps were then placed on the edges of the fascia superiorly and inferiorly. To close the defect primarily in transverse fashion, a series of 3 [id number] sutures were laid in of 0 Prolene. These were then tied sequentially, and the wound cavity was irrigated with saline solution and ensured to be hemostatic. Several 3-0 Vicryl sutures were used to tack the subcutaneous tissues back together to recreate the umbilical area, allowing the overlying skin to lie flat with obliteration of the space. Local anesthetic was infiltrated into the incision. Skin was then closed with running 4-0 vicryl subcuticular suture. Benzoin and steristrips were placed over the incision. A pressure dressing of gauze and Tegaderm was then also placed over the incision. Counts were correct at the end of the procedure. The patient was then awakened and extubated by anesthesia, moved back to her stretcher, and taken to the recovery room in stable condition having tolerated the procedure well. Dr. Cates was an essential legal document assistant throughout the procedure from assisting with dissection of the hernia sac, retraction and exposure throughout the procedure, to helping with closure of the defect, as well as the soft tissues and skin at the end. Ger Blankenship M.D. [id number] MTDD
== END 2019-05-11 13:51 | disposition home or self-care (01) | DRG 227 ==
LOC: JER 12:03 → JERBED 19:08 → J5S 21:29
PROVIDERS: ADMIT Internal Medicine; ATTEND Internal Medicine
PROC: 0WQF0ZZ Repair Abdominal Wall, Open Approach (ICD-10-PCS; principal; 2019-05-10 09:00)
DX: K42.0 Umbilical hernia with obstruction, without gangrene (principal); L03.311 Cellulitis of abdominal wall; L02.216 Cutaneous abscess of umbilicus; E03.9 Hypothyroidism, unspecified; F20.89 Other schizophrenia; R10.33 Periumbilical pain; Q43.3 Congenital malformations of intestinal fixation; D64.9 Anemia, unspecified
CPT/HCPCS: 36415; 74177-TC; 80048; 80053; 81003; 84100; 84443; 84703; 85025; 85610; 86850; 86900; 86901; 87040; 88302-TC; 94760; 99283-25

== ENCOUNTER 2019-05-20 19:45 | Emergency (ER) | payer OTHER ==
[2019-05-20 20:00] VITALS: BP 102/64; PULSE 95; TEMP 98.6; BMI 24.7
--- NOTE | 2019-05-20 20:01 | PDOC ---
Rapid Medical Evaluation Medical Evaluation: Allergies Allergy/AdvReac Type Severity Reaction Status Date / Time No Known Allergies Allergy Verified 05/09/19 12:17 I have performed a brief in-person evaluation of this patient. The patient presents with a chief complaint of: c/o cough, sore throat, slight congestion x 2 days Pertinent physical exam findings: lungs clear, oropharynx with no exudates noted I have ordered the following: nothing The patient will proceed to the ED for further evaluation. 05/20/19 19:58
--- NOTE | 2019-05-20 20:35 | PDOC ---
History of Present Illness - General Chief Complaint: Cold Symptoms Stated Complaint: COUGH Time Seen by Provider: 05/20/19 19:58 - History of Present Illness Initial Comments: 05/20/19 20:35 39 y/o F w/o CM presents for evaluation of cough without systemic symptoms x1 day. Past History - Past Medical History Allergies/Adverse Reactions: Allergies Allergy/AdvReac Type Severity Reaction Status Date / Time No Known Allergies Allergy Verified 05/09/19 12:17 Home Medications: Ambulatory Orders Levothyroxine [Synthroid -] 88 mcg PO DAILY 04/22/16 Acetaminophen [Tylenol .Regular Strength -] 650 mg PO Q6H tablet 05/11/19 Anemia: Yes Asthma: No Cancer: No Cardiac Disorders: No COPD: No Diabetes: No HTN: No Psychiatric Problems: Yes Seizures: No Thyroid Disease: Yes (Hypothyroid) - Suicide/Smoking/Psychosocial Hx Smoking Status: Yes Smoking History: Never smoked Have you smoked in the past 12 months: No Number of Cigarettes Smoked Daily: 0 Hx Alcohol Use: No Drug/Substance Use Hx: No Substance Use Type: None Hx Substance Use Treatment: No Review of Systems - Review of Systems Constitutional: No: Fever Respiratory: Yes: Cough *Physical Exam - Vital Signs Last Vital Signs Temp Pulse Resp BP Pulse Ox 98.6 F 95 H 18 102/64 97 05/20/19 19:58 05/20/19 19:58 05/20/19 19:58 05/20/19 19:58 05/20/19 19:58 - Physical Exam Comments: 05/20/19 20:35 HEAD: NC/AT EYES: Conjuntiva clear Ears: Canals and TM's normal NOSE: No d/c THROAT: Moist mucous membrances, oral pharanx clear, uvula midline NECK: Supple without adenopathy CARDIAC: S1 S2 LUNGS: CTA Full and Equal breath sounds ABDOMEN: Soft NT ND MS: Full ROM in all joints without edema NEUROLOGIC: No gross sensory or motor deficits, NVID SKIN: Normal color and temperature no lesions or rashes Medical Decision Making - Medical Decision Making 05/20/19 20:34 39 y/o F with cough x1 day without systemic symptoms and a benign examination. Will treat as viral URI *DC/Admit/Observation/Transfer Diagnosis at time of Disposition: Viral upper respiratory infection - Discharge Dispostion Disposition: HOME Condition at time of disposition: Stable Decision to Admit order: No - Referrals Referrals: Rios Brooke MD [Primary Care Provider] - - Patient Instructions Printed Discharge Instructions: DI for Viral Upper Respiratory Infection -- Adult Additional Instructions: Return to the emergency room should symptoms worsen. Please, without fail, follow up with your primary care doctor in 1-2 days for further evaluation and treatment. - Post Discharge Activity
== END 2019-05-20 20:35 | disposition home or self-care (01) ==
LOC: JERFT 19:45
DX: J06.9 Acute upper respiratory infection, unspecified (principal); B97.89 Other viral agents as the cause of diseases classified elsewhere; E03.9 Hypothyroidism, unspecified
CPT/HCPCS: 99281-25

== ENCOUNTER 2019-09-03 14:03 | Emergency (ER) | payer OTHER ==
--- NOTE | 2019-09-03 14:13 | PDOC ---
Rapid Medical Evaluation Medical Evaluation: Allergies Allergy/AdvReac Type Severity Reaction Status Date / Time No Known Allergies Allergy Verified 05/09/19 12:17 I have performed a brief in-person evaluation of this patient. The patient presents with a chief complaint of: c/o productive cough and subjective fever x 2 days along with body aches; took Tylenol today Pertinent physical exam findings: In NAD, lungs clear I have ordered the following: Flu swab The patient will proceed to the ED for further evaluation. 09/03/19 14:10
[2019-09-03 14:17] VITALS: BP 109/57; PULSE 96; TEMP 98.1; BMI 24.9
[2019-09-03] MEDS ORDERED: IBUPROFEN 600 MG TABLET (FP) PO ONE ×2 (14:45→14:51)
--- NOTE | 2019-09-03 14:53 | PDOC ---
History of Present Illness - General Chief Complaint: Cold Symptoms Stated Complaint: flu symptoms Time Seen by Provider: 09/03/19 14:10 History Source: Patient Exam Limitations: No Limitations - History of Present Illness Initial Comments: 09/03/19 14:48 39-year-old female denies past medical history presents complaining of productive cough, mild body aches, frontal headache, earache, sore throat for 2 to 3 days. at home with similar symptoms. Denies chest pain, shortness of breath, nausea, vomiting, diarrhea, abdominal pain or any other symptoms. Took acetaminophen 650 mg approximately 4 hours ago. ROS: GENERAL/CONSTITUTIONAL: Body aches, no fever, chills, weakness, dizziness HEAD, EYES, EARS, NOSE AND THROAT: No changes in vision, No ear pain or discharge, No sore throat CARDIOVASCULAR: No chest pain RESPIRATORY: Productive cough GASTROINTESTINAL: No pain, nausea, vomiting, diarrhea or constipation GENITOURINARY: No dysuria MUSCULOSKELETAL: No neck or back pain SKIN: No rash NEUROLOGIC: Mild frontal headache, vertigo, loss of consciousness, or loss of sensation PE: GENERAL: well-appearing, NAD HEAD: NCAT EYES: Pupils equal, round and reactive to light, sclera anicteric, conjunctiva clear ENT: Normal bilateral ear canal, pharynx: no erythema, no exudate, uvula midline , no tenderness to palpation over sinuses NECK: supple CHEST: nontender RESP: clear, no w/r/r CARDIO: rrr, no m/g/r ABD: +BS, soft, nontender, non distended BACK: no midline spinal ttp, no CVAT EXTREMITIES: Normal range of motion, no edema NEUROLOGICAL: Normal speech, normal gait SKIN: Warm, Dry Is this a multiple visit Asthma Patient?: No Past History - Past Medical History Allergies/Adverse Reactions: Allergies Allergy/AdvReac Type Severity Reaction Status Date / Time No Known Allergies Allergy Verified 09/03/19 14:18 Home Medications: Ambulatory Orders Levothyroxine [Synthroid -] 88 mcg PO DAILY 04/22/16 Acetaminophen [Tylenol .Regular Strength -] 650 mg PO Q6H tablet 05/11/19 Anemia: Yes Asthma: No Cancer: No Cardiac Disorders: No COPD: No Diabetes: No HTN: No Psychiatric Problems: Yes Seizures: No Thyroid Disease: Yes (Hypothyroid) - Psycho Social/Smoking Cessation Hx Smoking Status: Yes Smoking History: Never smoked Have you smoked in the past 12 months: No Number of Cigarettes Smoked Daily: 0 Information on smoking cessation initiated: No Hx Alcohol Use: No Drug/Substance Use Hx: No Substance Use Type: None Hx Substance Use Treatment: No *Physical Exam - Vital Signs Last Vital Signs Temp Pulse Resp BP Pulse Ox 98.1 F 96 H 16 109/57 L 100 09/03/19 14:11 09/03/19 14:11 09/03/19 14:11 09/03/19 14:11 09/03/19 14:11 Medical Decision Making - Medical Decision Making 09/03/19 14:50 39-year-old with productive cough, frontal headache, mild body aches, sore throat and earache for 2 to 3 days. Flu swab negative Supportive care Discharge Discharge - Discharge Information Problems reviewed: Yes Clinical Impression/Diagnosis: URI (upper respiratory infection) Qualifiers: URI type: unspecified viral URI Qualified Code(s): J06.9 - Acute upper respiratory infection, unspecified Condition: Stable Disposition: HOME - Admission No - Follow up/Referral Referrals: Rios Brooke MD [Primary Care Provider] - - Patient Discharge Instructions Additional Instructions: Take Tessalon Perles as directed Rest, drink plenty of fluids Alternate between acetaminophen and ibuprofen every 4-6 hours as needed Follow-up with your primary care doctor within 1 week Return precautions discussed - Post Discharge Activity
== END 2019-09-03 15:06 | disposition home or self-care (01) ==
LOC: JERFT 14:03
DX: J06.9 Acute upper respiratory infection, unspecified (principal); B97.89 Other viral agents as the cause of diseases classified elsewhere; E03.9 Hypothyroidism, unspecified; Z86.2 Personal history of diseases of the blood and blood-forming organs and certain disorders involving the immune mechanism; Z86.59 Personal history of other mental and behavioral disorders
CPT/HCPCS: 87804; 99281-25